=== PATIENT | female | born 2000 | race Caucasian/White ===

== ENCOUNTER 2020-06-29 08:03 | Outpatient (CLI) | payer OTHER, SELFPAY | END 2020-06-29 08:04 | disposition home or self-care (01) | LOC: ANHCOVIDVC 08:05 | PROVIDERS: PCP Pediatrics | DX: Z23 Encounter for immunization (principal) | CPT/HCPCS: 0001A; 91300 ==

== ENCOUNTER 2020-07-20 08:19 | Outpatient (CLI) | payer OTHER, SELFPAY | END 2020-07-20 08:20 | disposition home or self-care (01) | LOC: ANHCOVIDVC 08:19 | PROVIDERS: PCP Pediatrics | DX: Z23 Encounter for immunization (principal) | CPT/HCPCS: 0002A; 91300 ==